=== PATIENT | male | born 1990 | race Caucasian/White ===

== ENCOUNTER 2019-03-10 09:25 | Emergency (ER) | payer SELFPAY ==
[~2019-03-10] VITALS: Ht 177.8 cm; Wt 84.6 kg
[~2019-03-10 09:25] MED LIST: PROVENTIL HFA IN; TORADOL PO; ZITHROMAX250 MG PO
[2019-03-10 10:43] LABS: HEMOGLOBIN 13.7 g/dl (14.0-18.0); IMMATURE GRANULOCYTES 0.6 % (0.0-5.0); MEAN CORPUSCULAR HGB 29.8 pG CALC (26.0-32.0); MEAN CORPUSCULAR HGB CONC 34.3 g/L CALC (32.0-36.0); NEUT# 11.87 thou/uL (1.82-7.42); RED BLOOD COUNT 4.6 mill/uL (4.70-6.10); RED CELL DISTRI WIDTH 12.3 % (11.5-15.5)
[2019-03-10 11:28] LABS: ALKALINE PHOSPHATASE 116 u/l (38-126); ANION GAP 13 (6-22 (CALC)); BILIRUBIN, TOTAL 0.8 mg/dL (0.0-1.4); BUN 9 mg/dL (9-20); BUN/CREATININE RATIO 11 (12-20 (CALC)); CARBON DIOXIDE 24 mmol/l (22-30); CHLORIDE 102 mmol/l (95-108); CREATININE 0.8 mg/dL (0.7-1.3); GFR > 60 ML/MIN (>=60 (CALC)); GFR FOR AFR.AMER. > 60 ML/MIN (>=60 (CALC)); SGOT/AST 31 u/l (17-59); SODIUM 135 mmol/l (137-146); TOTAL PROTEIN 7.1 g/dL (6.3-8.2)
[2019-03-10] MEDS ORDERED: ZITHROMAX250 MG PO (11:34)
[2019-03-10] MEDS ORDERED: CLARITIN10 M1 PO (11:34)
[2019-03-10 11:37] VITALS: BP 114/64
== END 2019-03-10 11:51 | disposition home or self-care (01) | DRG 195 ==
LOC: ED 09:25
PROVIDERS: Emergency Medicine
DX: J18.9 Pneumonia, unspecified organism (principal); J02.0 Streptococcal pharyngitis; F17.210 Nicotine dependence, cigarettes, uncomplicated

== ENCOUNTER 2020-08-11 12:50 | Emergency (ER) | payer MEDICAID ==
[~2020-08-11] VITALS: Ht 177.8 cm; Wt 90.0 kg
[~2020-08-11 12:50] MED LIST changes: +CLARITIN10 M1 PO
[2020-08-11 14:57] VITALS: BP 135/98
== END 2020-08-11 14:58 | disposition home or self-care (01) ==
LOC: ED 12:50
DX: F43.9 Reaction to severe stress, unspecified (principal); F41.9 Anxiety disorder, unspecified; F17.200 Nicotine dependence, unspecified, uncomplicated; Z63.4 Disappearance and death of family member